=== PATIENT | female | born 1955 | race Caucasian/White ===

== ENCOUNTER → 2017-02-25 | Outpatient (CLI) | payer BC | END | disposition home or self-care (01) | LOC: C.LABSPEC 17:41 | PROVIDERS: ATTEND Physician Assistant | DX: L29.2 Pruritus vulvae (principal) ==

== ENCOUNTER → 2017-08-02 | Outpatient (CLI) | payer BC | END | disposition home or self-care (01) | LOC: C.PAPS 16:21 | PROVIDERS: ATTEND Obstetrics & Gynecology | DX: Z01.419 Encounter for gynecological examination (general) (routine) without abnormal findings (principal) ==

== ENCOUNTER 2022-06-11 01:11 | Observation (INO) ==
[2022-06-11 01:46] LABS: Basophils # (auto) 0.08 K/uL (0-0.2); Eosinophils # (auto) 1.04 K/uL (0-0.50); Eosinophils % (auto) 13.2 %; Hematocrit (blood only) 42.3 % (34.1-44.9); Hemoglobin 13.8 g/dl (12.0-16.0); Immature Granulocytes # (auto) 0.01 K/uL (0.00-0.02); Immature Granulocytes % (auto) 0.1 %; Lymphocytes # (auto) 2.16 K/uL (1.2-3.4); Lymphocytes % (auto) 27.5 %; Mean Corpuscular Hemoglobin 28.6 pg (25.0-34.0); Mean Corpuscular Hgb Conc 32.6 g/dL (32.0-36.0); Mean Corpuscular Volume 87.8 fL (80.0-100.0); Mean Platelet Volume 9.7 fL (9.4-12.3); Monocytes # (auto) 0.85 K/uL (0.24-0.82); Monocytes % (auto) 10.8 %; Neutrophils # (auto) 3.71 K/uL (1.4-6.5); Neutrophils % (auto) 47.4 %; Platelet Count 259 K/uL (130-400); RDW Coefficient of Variation 13.5 % (11.5-14.5); RDW Standard Deviation 43.6 fL (36.4-46.3); Red Blood Count 4.82 M/uL (3.93-5.22); White Blood Count 7.85 K/ul (4.8-10.8)
[2022-06-11 01:57] LABS: D Dimer 530 ug/L FEU (0-500); INR 0.9 (0.9-1.1); Partial Thromboplastin Ratio 0.9; Partial Thromboplastin Time 24.3 Seconds (21.0-31.0); Prothrombin Time 9.8 Seconds (9.0-12.0)
[2022-06-11] MEDS ORDERED: ASPIRIN CHEW 324 MG PO STA (02:08)
--- NOTE | 2022-06-11 02:12 | Emergency Department Note ---
History of Present Illness General Chief complaint: Tachycardia Stated complaint: RAPID HEARTBEAT, ELEVATED BLOOD PRESSURE, SWEATING Time Seen by Provider: 06/11/22 01:38 History of Present Illness 66-year-old female presents emergency department states that at 12:20 AM she was woken from sleep with chest pressure she felt extremely tired she felt that her heart was racing she took her blood pressure was reportedly high and her heart rate was 70 typically her heart rate is in the 50-60 range. Patient denies any shortness of breath denies any pleuritic chest pain. Patient states she felt extremely fatigued and had indigestion. Patient states she is much improved currently patient denies shortness of breath. There are no other mitigating or alleviating factors Home Medications Medication Instructions Recorded Confirmed Type etanercept 25 mg (1 mL) 25 mg subcut .COMPLEX 05/27/19 03/01/21 History subcutaneous powder for solution levothyroxine 50 mcg tablet 50 mcg PO DAILY 05/27/19 03/01/21 History alendronate 70 mg tablet 70 mg PO .weekly 03/01/21 03/01/21 History atorvastatin 10 mg tablet 10 mg PO DAILY 03/01/21 03/01/21 History diltiazem HCl 120 mg 120 mg PO DAILY 03/01/21 03/01/21 History capsule,extended release 24 hr losartan 100 mg tablet 100 mg PO DAILY 03/01/21 03/01/21 History Allergies Allergy/AdvReac Type Severity Reaction Status Date / Time amoxicillin Allergy Verified 03/01/21 10:55 sulfamethoxazole Allergy abdominal Verified 03/01/21 10:55 [From Bactrim] pain, fatigue trimethoprim [From Bactrim] Allergy abdominal Verified 03/01/21 10:55 pain, fatigue Past Med/Surg History Medical History History of anxiety History of arthritis History of cardiac murmur History of hyperlipidemia History of hypertension History of Lyme disease History of migraine History of thyroid disease Rheumatoid arthritis Varicella Surgical History History of cataract surgery S/P dilation and curettage S/P foot surgery hallux valgus (bunion) correction S/P parathyroidectomy aug 2013 Family History Father Myocardial infarction Grandmother (Paternal) Myocardial infarction Osteoporosis Brother Colorectal cancer Daughter Endometriosis Grandfather (Maternal) Heart disease Grandmother (Maternal) Heart disease Mother Hypertension Osteoporosis Stroke Grandfather (Paternal) Kidney disease Other Cardiovascular disorder Social History Smoking Status: Never smoker Hx Alcohol Use: Yes (social) Preferred Language: Yi marital status: Feels Safe at Home: Yes Review of Systems A total of 10 systems reviewed and were otherwise negative Constitutional: no fever Respiratory: no cough Cardiovascular: + chest pain Gastrointestinal: no abdominal pain Physical Exam Vital Signs Vital Signs - 24 hr 06/11/22 01:13 06/11/22 01:12 06/11/22 01:12 Temperature 36.1 C L Temperature Source Temporal Artery Scan Pulse Rate 55 L Pulse Rate [Apical] 50 L Pulse Rate from SpO2 Sensor Respiratory Rate 20 16 Respiratory Effort / Characteristics Non-Labored Spontaneous Non-Labored Spontaneous Respiratory Depth Normal Normal Respiratory Pattern Regular Blood Pressure 172/106 H Blood Pressure [Left Arm] 171/106 H Blood Pressure [Right Arm] 206/97 H Blood Pressure Mean 128 Blood Pressure Mean [Left Arm] 127 Blood Pressure Mean [Right Arm] 133 Blood Pressure Position [Right Arm] Sitting Pulse Oximetry 99 97 96 Oxygen Delivery Method Room Air Room Air Room Air Sepsis New/Unexplained Change in Mental Status N/A Sepsis Action Taken by Nursing No Action Required 06/11/22 01:27 06/11/22 01:30 06/11/22 01:32 Temperature Temperature Source Pulse Rate 50 L 53 L Pulse Rate [Apical] Pulse Rate from SpO2 Sensor Respiratory Rate 16 15 Respiratory Effort / Characteristics Respiratory Depth Respiratory Pattern Blood Pressure 186/92 H 171/106 H Blood Pressure [Left Arm] Blood Pressure [Right Arm] Blood Pressure Mean 123 127 Blood Pressure Mean [Left Arm] Blood Pressure Mean [Right Arm] Blood Pressure Position [Right Arm] Pulse Oximetry 96 99 Oxygen Delivery Method Room Air Sepsis New/Unexplained Change in Mental Status Sepsis Action Taken by Nursing 06/11/22 01:33 06/11/22 01:33 06/11/22 02:00 Temperature Temperature Source Pulse Rate 54 L Pulse Rate [Apical] Pulse Rate from SpO2 Sensor 54 L Respiratory Rate 12 Respiratory Effort / Characteristics Respiratory Depth Respiratory Pattern Blood Pressure 206/97 H 176/96 H Blood Pressure [Left Arm] Blood Pressure [Right Arm] Blood Pressure Mean 133 122 Blood Pressure Mean [Left Arm] Blood Pressure Mean [Right Arm] Blood Pressure Position [Right Arm] Pulse Oximetry 97 Oxygen Delivery Method Sepsis New/Unexplained Change in Mental Status Sepsis Action Taken by Nursing 06/11/22 02:00 06/11/22 02:30 06/11/22 03:00 Temperature Temperature Source Pulse Rate 52 L 52 L 58 L Pulse Rate [Apical] Pulse Rate from SpO2 Sensor Respiratory Rate 12 16 20 Respiratory Effort / Characteristics Respiratory Depth Respiratory Pattern Blood Pressure 177/92 H 175/92 H Blood Pressure [Left Arm] Blood Pressure [Right Arm] Blood Pressure Mean 120 119 Blood Pressure Mean [Left Arm] Blood Pressure Mean [Right Arm] Blood Pressure Position [Right Arm] Pulse Oximetry 94 98 Oxygen Delivery Method Sepsis New/Unexplained Change in Mental Status Sepsis Action Taken by Nursing 06/11/22 03:30 06/11/22 03:30 06/11/22 04:00 Temperature Temperature Source Pulse Rate 54 L 52 L 52 L Pulse Rate [Apical] Pulse Rate from SpO2 Sensor 52 L Respiratory Rate 20 15 16 Respiratory Effort / Characteristics Respiratory Depth Respiratory Pattern Blood Pressure 182/89 H 186/87 H Blood Pressure [Left Arm] Blood Pressure [Right Arm] Blood Pressure Mean 120 120 Blood Pressure Mean [Left Arm] Blood Pressure Mean [Right Arm] Blood Pressure Position [Right Arm] Pulse Oximetry 95 96 96 Oxygen Delivery Method Sepsis New/Unexplained Change in Mental Status Sepsis Action Taken by Nursing 06/11/22 04:30 Temperature Temperature Source Pulse Rate Pulse Rate [Apical] Pulse Rate from SpO2 Sensor 61 Respiratory Rate 20 Respiratory Effort / Characteristics Respiratory Depth Respiratory Pattern Blood Pressure 189/98 H Blood Pressure [Left Arm] Blood Pressure [Right Arm] Blood Pressure Mean 128 Blood Pressure Mean [Left Arm] Blood Pressure Mean [Right Arm] Blood Pressure Position [Right Arm] Pulse Oximetry 96 Oxygen Delivery Method Sepsis New/Unexplained Change in Mental Status Sepsis Action Taken by Nursing VITAL SIGNS - Vital signs and nursing notes were reviewed. GENERAL - no acute distress. Communicates well with provider and answers questions appropriately. SKIN - Without rashes. HEAD - NC/AT. EYES - PERRL with EOMI bilaterally. Sclera anicteric. Palpebral conjunctiva pink and moist with no injection noted. EARS - No deformities of external structures noted on gross examination bilaterally. NOSE - Midline and without cyanosis. No epistaxis or purulent drainage noted. Septum midline without deviation or septal hematoma noted. MOUTH/OROPHARYNX - Without perioral cyanosis. Buccal mucosa pink and moist NECK - Neck with FROM. Supple to palpation. LUNGS - Chest wall symmetric without accessory muscle use, intercostals retractions, or central cyanosis. Normal vesicular breath sounds CTA B/L. No wheezes, rales, or rhonchi appreciated. CARDIAC - RRR with S1/S2. No murmur, rubs, or gallops appreciated. ABDOMEN - Abdominal contour soft without pulsations or visible masses. BS normoactive all four quadrants. No tenderness, palpable masses, hepatosplenomegaly, or ascites noted. EXTREMITIES - No clubbing or peripheral cyanosis. No pretibial edema present. +5/5 strength noted in UE/LE bilaterally. NEUROLOGIC - Cranial nerves II through XII grossly intact. PSYCH - A&Ox3 and cooperates fully with examiner. Pt is very pleasant and interacts well with examiner. Course Reevaluation(s) Reevaluation #1: Patient is taken aspirin prior to arrival. Patient underwent CT scanning. Patient due to risk factors will be admitted to the hospital. The case was discussed with the hospitalist for admission Time: 05:09 Administered Medications Discontinued Medications Aspirin (Aspirin Chew 324 Mg) 324 mg PO NOW STA Stop: 06/11/22 02:09 Last Admin: 06/11/22 02:24 Dose: Not Given Documented By: SHIRLEY Ioversol (Optiray 300 500ml) 125 ml IV ONCE ONE Stop: 06/11/22 02:56 Last Admin: 06/11/22 02:55 Dose: 114 ml Documented By: BETTINA Medical Decision Making Medical Records Attestation: I reviewed the patient's medical records. Home Medications Current Medication List: was personally reviewed by me Laboratory Data Attestation: I reviewed the patient's lab results. Result diagrams: 06/11/22 01:06/11/22: Lab Results 06/11/22 06/11/22 06/11/22 Range/Units 01: 01: 01:29 WBC 7.85 (4.8-10.8) K/ul RBC 4.82 (3.93-5.22) M/uL Hgb 13.8 (12.0-16.0) g/dl Hct 42.3 (34.1-44.9) % MCV 87.8 (80.0-100.0) fL MCH 28.6 (25.0-34.0) pg MCHC 32.6 (32.0-36.0) g/dL RDW Std Deviation 43.6 (36.4-46.3) fL RDW Coeff of [place] 13.5 (11.5-14.5) % Plt Count 259 (130-400) K/uL MPV 9.7 (9.4-12.3) fL Immature Gran % (Auto) 0.1 % Neut % (Auto) 47.4 % Lymph % (Auto) 27.5 % Todd % (Auto) 10.8 % Eos % (Auto) 13.2 % Baso % (Auto) 1.0 % Neut # (Auto) 3.71 (1.4-6.5) K/uL Lymph # (Auto) 2.16 (1.2-3.4) K/uL Todd # (Auto) 0.85 H (0.24-0.82) K/uL Eos # (Auto) 1.04 H (0-0.50) K/uL Baso # (Auto) 0.08 (0-0.2) K/uL Immature Gran # (Auto) 0.01 (0.00-0.02) K/uL PT 9.8 (9.0-12.0) Seconds INR 0.9 (0.9-1.1) APTT 24.3 (21.0-31.0) Seconds PTT Ratio 0.9 D-Dimer 530 H* (0-500) ug/L FEU Sodium 139 (136-145) mmol/L Potassium 3.8 (3.5-5.1) mmol/L Chloride 102 (98-107) mmol/L Carbon Dioxide 29 (21-32) mmol/L Anion Gap 8 (3-11) BUN 27 H (6-23) mg/dl Creatinine 0.83 (0.6-1.2) mg/dl Est Cr Clr Drug Dosing 63.3 ml/min Est GFR ( Amer) 85.8 ml/min Est GFR (Non-Af Amer) 74.0 ml/min BUN/Creatinine Ratio 32.5 H (10-20) Glucose 99 (70-99(Fasting)) mg/dl Calcium 10.1 (8.5-10.1) mg/dl Magnesium 2.1 (1.7-2.4) mg/dl Total Bilirubin 0.4 (0.2-1.0) mg/dl AST 22 (13-39) U/L ALT 21 (7-52) U/L Alkaline Phosphatase 56 (34-104) U/L Troponin I High Sens 6.0 (0-14) pg/ml Total Protein 7.4 (6.0-8.3) gm/dl Albumin 4.2 (3.4-5.0) gm/dl Globulin 3.2 (2.5-4.0) gm/dl Albumin/Globulin Ratio 1.3 (0.9-2) Lipase 63 (11-82) U/L TSH (0.300-4.500) uIu/ml Free T4 (0.61-1.60) ng/dl Urine Color Urine Appearance (Clear) Urine pH (4.5-7.5) Ur Specific [place] (1.000-1.030) Urine Protein (Negative) Urine Glucose (UA) (Negative) Urine Ketones (Negative) Urine Blood (Negative) Urine Nitrite (Negative) Urine Bilirubin (Negative) Urine Urobilinogen (Negative) Ur Leukocyte Esterase (Negative) SARS-CoV-2, RNA, NAAT (NEGATIVE) 06/11/22 06/11/22 06/11/22 Range/Units 01:29 02:56 04:36 WBC (4.8-10.8) K/ul RBC (3.93-5.22) M/uL Hgb (12.0-16.0) g/dl Hct (34.1-44.9) % MCV (80.0-100.0) fL MCH (25.0-34.0) pg MCHC (32.0-36.0) g/dL RDW Std Deviation (36.4-46.3) fL RDW Coeff of [place] (11.5-14.5) % Plt Count (130-400) K/uL MPV (9.4-12.3) fL Immature Gran % (Auto) % Neut % (Auto) % Lymph % (Auto) % Todd % (Auto) % Eos % (Auto) % Baso % (Auto) % Neut # (Auto) (1.4-6.5) K/uL Lymph # (Auto) (1.2-3.4) K/uL Todd # (Auto) (0.24-0.82) K/uL Eos # (Auto) (0-0.50) K/uL Baso # (Auto) (0-0.2) K/uL Immature Gran # (Auto) (0.00-0.02) K/uL PT (9.0-12.0) Seconds INR (0.9-1.1) APTT (21.0-31.0) Seconds PTT Ratio D-Dimer (0-500) ug/L FEU Sodium (136-145) mmol/L Potassium (3.5-5.1) mmol/L Chloride (98-107) mmol/L Carbon Dioxide (21-32) mmol/L Anion Gap (3-11) BUN (6-23) mg/dl Creatinine (0.6-1.2) mg/dl Est Cr Clr Drug Dosing ml/min Est GFR ( Amer) ml/min Est GFR (Non-Af Amer) ml/min BUN/Creatinine Ratio (10-20) Glucose (70-99(Fasting)) mg/dl Calcium (8.5-10.1) mg/dl Magnesium (1.7-2.4) mg/dl Total Bilirubin (0.2-1.0) mg/dl AST (13-39) U/L ALT (7-52) U/L Alkaline Phosphatase (34-104) U/L Troponin I High Sens (0-14) pg/ml Total Protein (6.0-8.3) gm/dl Albumin (3.4-5.0) gm/dl Globulin (2.5-4.0) gm/dl Albumin/Globulin Ratio (0.9-2) Lipase (11-82) U/L TSH 11.895 H (0.300-4.500) uIu/ml Free T4 1.42 (0.61-1.60) ng/dl Urine Color Yellow Urine Appearance Clear (Clear) Urine pH 7.5 (4.5-7.5) Ur Specific [place] 1.015 (1.000-1.030) Urine Protein Negative (Negative) Urine Glucose (UA) Negative (Negative) Urine Ketones Negative (Negative) Urine Blood Negative (Negative) Urine Nitrite Negative (Negative) Urine Bilirubin Negative (Negative) Urine Urobilinogen Negative (Negative) Ur Leukocyte Esterase Negative (Negative) SARS-CoV-2, RNA, NAAT NEGATIVE (NEGATIVE) Imaging Data Attestation: I personally reviewed and interpreted this imaging study as follows: My Impression: Chest x-ray interpreted by me negative for infiltrate normal mediastinum no pneumothorax ECG Data Attestation: I personally reviewed and interpreted this ECG as follows: Additional Comments: EKG interpreted by me sinus bradycardia rate of 53 normal intervals normal axis no obvious ST segment elevation or depression MDM Narrative Medical decision making differential diagnosis includes angina unstable angina acute coronary syndrome acute MS acute pulmonary embolism acute anxiety. Plan is to check labs EKG chest x-ray, CT, give aspirin, observe Impression & Plan Chest pain, Adult hypothyroidism Discharge Plan Visit Data Chief Complaint: Tachycardia Stated Complaint: RAPID HEARTBEAT, ELEVATED BLOOD PRESSURE, SWEATING ED Provider: Kapil William Discharge Problem: Chest pain, Adult hypothyroidism Patient Disposition: Being Evaluated by Hospitalist Forms Stand Alone Forms: [facility] Prescriptions Prescriptions: No Action alendronate 70 mg tablet 70 mg PO .weekly atorvastatin 10 mg tablet 10 mg PO DAILY diltiazem HCl 120 mg capsule,extended release 24hr 120 mg PO DAILY losartan 100 mg tablet 100 mg PO DAILY etanercept 25 mg (1 mL) recon soln 25 mg subcut .COMPLEX Label Comments: 25 mg subcut Twice a week; Rx Instructions: 25 mg subcut Twice a week; levothyroxine 50 mcg tablet 50 mcg PO DAILY Referrals Referrals: Andreina Eason MD [Primary Care Provider] -
[2022-06-11 02:30] LABS: Thyroid Stimulating Hormone 11.895 uIu/ml (0.300-4.500)
[2022-06-11 02:37] LABS: Albumin Globulin Ratio 1.3 (0.9-2); Albumin Level 4.2 gm/dl (3.4-5.0); BUN Creatinine Ratio 32.5 (10-20); Bilirubin,Total 0.4 mg/dl (0.2-1.0); Calcium 10.1 mg/dl (8.5-10.1); Creatinine Clr Calc Pharmacy 63.3 ml/min; Est GFR (African American) 85.8 ml/min; Globulin 3.2 gm/dl (2.5-4.0); Magnesium 2.1 mg/dl (1.7-2.4); Potassium 3.8 mmol/L (3.5-5.1); Total Protein 7.4 gm/dl (6.0-8.3)
[2022-06-11] MEDS ORDERED: OPTIRAY 300 500mL IV ONE (02:55)
[2022-06-11 03:02] LABS: T4 Free Thyroxine 1.42 ng/dl (0.61-1.60)
[2022-06-11 03:51] LABS: Appearance Urine Clear (Clear); Bilirubin Urine Negative (Negative); Blood Urine Negative (Negative); Color Urine Yellow; Glucose Urine UA Negative (Negative); Ketones Urine Negative (Negative); Leukocyte Esterase Urine Negative (Negative); Nitrite Urine Negative (Negative); Protein Urine Negative (Negative); Specific Gravity Urine 1.015 (1.000-1.030); Urobilinogen Urine Negative (Negative); pH Urine 7.5 (4.5-7.5)
--- NOTE | 2022-06-11 05:02 | History & Physical Report ---
Date of Service June 11, 2022 Assessment & Plan (1) Chest pain: Plan: 66yo female with HTN, HLP and RA presenting with substernal chest pressure that woke her from sleep, associated diaphoresis. Presently chest pain free. Initial HS-troponin at appx 1 hr after onset of pain is unremarkable at 6. EKG with no ischemic changes. Patient does endorse some decreased exercise tolerance and MARTINEZ last week which is new to her. -Observation to medical with telemetry -Trend troponin -Check HgbA1C and Lipid panel for risk stratification -Check 2D echo -Consider scheduling outpatient stress testing (2) Hypertension: Plan: Blood pressure mildly elevated -Continue Losartan 100mg po daily (3) Hyperlipidemia: Plan: Chronic. -Continue Atorvastatin 10mg po daily -Check Lipid panel for cardiac risk stratification (4) Adult hypothyroidism: Plan: Chronic. Stable. Elevated TSH with normal T4 -Continue Synthroid 50mcg po daily F/E/N - Heplock. Electrolytes WNL. AHA diet as tolerated Ppx - Lovenox Code - Full Dispo - Observation to medical with telemetry History of Present Illness Chief Complaint: chest pain Primary Care Provider: Andreina Eason MD Alina Lawson is a 66yo female with history of rheumatoid arthritis, HTN, HLP and hypothyroidism presenting with chest pain. Patient was in her usual state of health when she woke this AM around 12:15 with substernal chest discomfort. She felt that there was heaviness and pressure in her chest. She was diaphoretic and clammy and felt very fatigued. Denies nausea, palpitations, dizziness. She reports her blood pressure was elevated as was her heart rate. She took some antacids thinking it was GI, however, got no relief. The discomfort started to improve after 1 hour. Patient presently chest pain free. She has no known history of heart disease or heart failure. She had a stress test many years ago. No stents. She does have a family history of CAD in her mother and father - uncertain age of onset. Patient is active and independent. She walks frequently and does yoga. She typically does not have exertional symptoms with exception of last week when she became exceedingly short of breath, dizzy and fatigued after climbing a flight of stairs. ER: ASA 324 Allergies Allergy/AdvReac Type Severity Reaction Status Date / Time amoxicillin Allergy Verified 03/01/21 10:55 sulfamethoxazole Allergy abdominal Verified 03/01/21 10:55 [From Bactrim] pain, fatigue trimethoprim [From Bactrim] Allergy abdominal Verified 03/01/21 10:55 pain, fatigue Home Medications Medication Instructions Recorded Confirmed Type etanercept 25 mg (1 mL) 25 mg subcut .COMPLEX 05/27/19 03/01/21 History subcutaneous powder for solution levothyroxine 50 mcg tablet 50 mcg PO DAILY 05/27/19 03/01/21 History alendronate 70 mg tablet 70 mg PO .weekly 03/01/21 03/01/21 History atorvastatin 10 mg tablet 10 mg PO DAILY 03/01/21 03/01/21 History diltiazem HCl 120 mg 120 mg PO DAILY 03/01/21 03/01/21 History capsule,extended release 24 hr losartan 100 mg tablet 100 mg PO DAILY 03/01/21 03/01/21 History Past Med/Surg History Medical History (Updated 06/11/22 @ 05:11 by Jojo Herbert DO) History of anxiety History of arthritis History of cardiac murmur History of hyperlipidemia History of hypertension History of Lyme disease History of migraine History of thyroid disease Hyperlipidemia Hypertension Rheumatoid arthritis Varicella Surgical History History of cataract surgery S/P dilation and curettage S/P foot surgery hallux valgus (bunion) correction S/P parathyroidectomy aug 2013 Family History Father Myocardial infarction Grandmother (Paternal) Myocardial infarction Osteoporosis Brother Colorectal cancer Daughter Endometriosis Grandfather (Maternal) Heart disease Grandmother (Maternal) Heart disease Mother Hypertension Osteoporosis Stroke Grandfather (Paternal) Kidney disease Other Cardiovascular disorder Social History Smoking Status: Never smoker Hx Alcohol Use: Yes (social) Preferred Language: Kazakh marital status: Feels Safe at Home: Yes Review of Systems Review of Systems: All systems reviewed & are unremarkable except as noted in HPI & below Physical Exam Physical Exam: General: patient resting comfortably, NAD, non-toxic in appea ramon, AA&O x 4 Skin: warm, dry, intact, no rashes or lesions HEENT: NC/AT, PERRL, EOMI, anicteric sclera, conjunctiva without injection, external ear normal to inspection and nontender, nares patent, moist mucus membranes, dentition intact, no oropharyngeal lesions, neck supple, trachea midline, no LAD, no thyromegaly, no JVD Heart: +S1/S2, regular, no m/r/g Lungs: equal air entry bilaterally, no rales/rhonchi/wheezes Abd: +BS, soft, NT/ND, no masses/organomegaly/ascites Ext: warm, 2+ pulses in UE/LE bilaterally, no clubbing/cyanosis or edema, changes consistent with RA present on hands and feet bilaterally - ulnar deviation, MCP hypertrophy Neuro: nonfocal, patient AA&O x 4, speech intact, no facial droop, moving all extremities on command with equal strength 5/5 Results & Data Results & Data ([facility]) Vital Signs (Past 12 Hours) Vital Signs Temp Pulse Pulse Resp BP BP BP 06/11/22 04:30 20 189/98 H 06/11/22 04:00 52 L 16 186/87 H 06/11/22 03:30 52 L 15 06/11/22 03:30 54 L 20 182/89 H 06/11/22 03:00 58 L 20 175/92 H 06/11/22 02:30 52 L 16 177/92 H 06/11/22 02:00 52 L 12 06/11/22 02:00 176/96 H 06/11/22 01:33 54 L 12 06/11/22 01:33 206/97 H 06/11/22 01:32 171/106 H 06/11/22 01:30 53 L 15 186/92 H 06/11/22 01:27 50 L 16 06/11/22 01:12 06/11/22 01:12 50 L 16 171/106 H 206/97 H 06/11/22 01:13 36.1 C L 55 L 20 172/106 H Pulse Ox O2 Del Method 06/11/22 04:30 96 06/11/22 04:00 96 06/11/22 03:30 96 06/11/22 03:30 95 06/11/22 03:00 98 06/11/22 02:30 94 06/11/22 02:00 06/11/22 02:00 06/11/22 01:33 97 06/11/22 01:33 06/11/22 01:32 06/11/22 01:30 99 06/11/22 01:27 96 Room Air 06/11/22 01:12 96 Room Air 06/11/22 01:12 97 Room Air 06/11/22 01:13 99 Room Air Laboratory Results Laboratory Results WBC 7.85 K/ul (4.8-10.8) 06/11/22 01: RBC 4.82 M/uL (3.93-5.22) 06/11/22 01: Hgb 13.8 g/dl (12.0-16.0) 06/11/22: Hct 42.3 % (34.1-44.9) 06/11/22: MCV 87.8 fL (80.0-100.0) 06/11/22: MCH 28.6 pg (25.0-34.0) 06/11/22: MCHC 32.6 g/dL (32.0-36.0) 06/11/22: RDW Std Deviation 43.6 fL (36.4-46.3) 06/11/22: RDW Coeff of [place] 13.5 % (11.5-14.5) 06/11/22: Plt Count 259 K/uL (130-400) 06/11/22 01: MPV 9.7 fL (9.4-12.3) 06/11/22: Immature Gran % (Auto) 0.1 % 06/11/22: Neut % (Auto) 47.4 % 06/11/22 01: Lymph % (Auto) 27.5 % 06/11/22: [place] % (Auto) 10.8 % 06/11/22: Eos % (Auto) 13.2 % 06/11/22: Baso % (Auto) 1.0 % 06/11/22: Neut # (Auto) 3.71 K/uL (1.4-6.5) 06/11/22: Lymph # (Auto) 2.16 K/uL (1.2-3.4) 06/11/22: [place] # (Auto) 0.85 K/uL (0.24-0.82) H 06/11/22 01: Eos # (Auto) 1.04 K/uL (0-0.50) H 06/11/22 01: Baso # (Auto) 0.08 K/uL (0-0.2) 06/11/22 01: Immature Gran # (Auto) 0.01 K/uL (0.00-0.02) 06/11/22 01: PT 9.8 Seconds (9.0-12.0) 06/11/22 01: INR 0.9 (0.9-1.1) 06/11/22: APTT 24.3 Seconds (21.0-31.0) 06/11/22: PTT Ratio 0.9 06/11/22 01: D-Dimer 530 ug/L FEU (0-500) H* 06/11/22 01: Sodium 139 mmol/L (136-145) 06/11/22 01: Potassium 3.8 mmol/L (3.5-5.1) 06/11/22 01: Chloride 102 mmol/L (98-107) 06/11/22 01: Carbon Dioxide 29 mmol/L (21-32) 06/11/22: Anion Gap 8 (3-11) 06/11/22 01: BUN 27 mg/dl (6-23) H 06/11/22 01: Creatinine 0.83 mg/dl (0.6-1.2) 06/11/22 01: Est Cr Clr Drug Dosing 63.3 ml/min 06/11/22 01:29 Est GFR ( Amer) 85.8 ml/min 06/11/22 01: Est GFR (Non-Af Amer) 74.0 ml/min 06/11/22 01: BUN/Creatinine Ratio 32.5 (10-20) H 06/11/22 01: Glucose 99 mg/dl (70-99(Fasting)) 06/11/22 01: Calcium 10.1 mg/dl (8.5-10.1) 06/11/22: Magnesium 2.1 mg/dl (1.7-2.4) 06/11/22 01:29 Total Bilirubin 0.4 mg/dl (0.2-1.0) 06/11/22 01: AST 22 U/L (13-39) 06/11/22 01: ALT 21 U/L (7-52) 06/11/22 01: Alkaline Phosphatase 56 U/L (34-104) 06/11/22 01: Troponin I High Sens 6.0 pg/ml (0-14) 06/11/22 01: Total Protein 7.4 gm/dl (6.0-8.3) 06/11/22 01: Albumin 4.2 gm/dl (3.4-5.0) 06/11/22 01: Globulin 3.2 gm/dl (2.5-4.0) 06/11/22: Albumin/Globulin Ratio 1.3 (0.9-2) 06/11/22 01: Lipase 63 U/L (11-82) 06/11/22 01: TSH 11.895 uIu/ml (0.300-4.500) H 06/11/22 01:29 Free T4 1.42 ng/dl (0.61-1.60) 06/11/22 01:29 Urine Color Yellow 06/11/22 02:56 Urine Appearance Clear (Clear) 06/11/22 02:56 Urine pH 7.5 (4.5-7.5) 06/11/22 02:56 Ur Specific [place] 1.015 (1.000-1.030) 06/11/22 02:56 Urine Protein Negative (Negative) 06/11/22 02:56 Urine Glucose (UA) Negative (Negative) 06/11/22 02:56 Urine Ketones Negative (Negative) 06/11/22 02:56 Urine Blood Negative (Negative) 06/11/22 02:56 Urine Nitrite Negative (Negative) 06/11/22 02:56 Urine Bilirubin Negative (Negative) 06/11/22 02:56 Urine Urobilinogen Negative (Negative) 06/11/22 02:56 Ur Leukocyte Esterase Negative (Negative) 06/11/22 02:56 SARS-CoV-2, RNA, NAAT NEGATIVE (NEGATIVE) 06/11/22 04:36 Diagnostic Findings Laboratory Results WBC 7.85 K/ul (4.8-10.8) 06/11/22: RBC 4.82 M/uL (3.93-5.22) 06/11/22: Hgb 13.8 g/dl (12.0-16.0) 06/11/22: Hct 42.3 % (34.1-44.9) 06/11/22: MCV 87.8 fL (80.0-100.0) 06/11/22 01: MCH 28.6 pg (25.0-34.0) 06/11/22 01: MCHC 32.6 g/dL (32.0-36.0) 06/11/22: RDW Std Deviation 43.6 fL (36.4-46.3) 06/11/22: RDW Coeff of [place] 13.5 % (11.5-14.5) 06/11/22: Plt Count 259 K/uL (130-400) 06/11/22: MPV 9.7 fL (9.4-12.3) 06/11/22: Immature Gran % (Auto) 0.1 % 06/11/22: Neut % (Auto) 47.4 % 06/11/22 01: Lymph % (Auto) 27.5 % 06/11/22: [place] % (Auto) 10.8 % 06/11/22 01: Eos % (Auto) 13.2 % 06/11/22: Baso % (Auto) 1.0 % 06/11/22: Neut # (Auto) 3.71 K/uL (1.4-6.5) 06/11/22 01: Lymph # (Auto) 2.16 K/uL (1.2-3.4) 06/11/22: [place] # (Auto) 0.85 K/uL (0.24-0.82) H 06/11/22: Eos # (Auto) 1.04 K/uL (0-0.50) H 06/11/22 01: Baso # (Auto) 0.08 K/uL (0-0.2) 06/11/22: Immature Gran # (Auto) 0.01 K/uL (0.00-0.02) 06/11/22 01: PT 9.8 Seconds (9.0-12.0) 06/11/22 01: INR 0.9 (0.9-1.1) 06/11/22 01: APTT 24.3 Seconds (21.0-31.0) 06/11/22 01: PTT Ratio 0.9 06/11/22 01:29 D-Dimer 530 ug/L FEU (0-500) H* 06/11/22 01: Sodium 139 mmol/L (136-145) 06/11/22 01: Potassium 3.8 mmol/L (3.5-5.1) 06/11/22: Chloride 102 mmol/L (98-107) 06/11/22: Carbon Dioxide 29 mmol/L (21-32) 06/11/22 01: Anion Gap 8 (3-11) 06/11/22 01: BUN 27 mg/dl (6-23) H 06/11/22 01: Creatinine 0.83 mg/dl (0.6-1.2) 06/11/22 01: Est Cr Clr Drug Dosing 63.3 ml/min 06/11/22 01:29 Est GFR ( Amer) 85.8 ml/min 06/11/22 01: Est GFR (Non-Af Amer) 74.0 ml/min 06/11/22 01: BUN/Creatinine Ratio 32.5 (10-20) H 06/11/22 01: Glucose 99 mg/dl (70-99(Fasting)) 06/11/22 01: Calcium 10.1 mg/dl (8.5-10.1) 06/11/22 01: Magnesium 2.1 mg/dl (1.7-2.4) 06/11/22 01: Total Bilirubin 0.4 mg/dl (0.2-1.0) 06/11/22 01: AST 22 U/L (13-39) 06/11/22 01: ALT 21 U/L (7-52) 06/11/22 01:29 Alkaline Phosphatase 56 U/L (34-104) 06/11/22 01:29 Troponin I High Sens 6.0 pg/ml (0-14) 06/11/22 01: Total Protein 7.4 gm/dl (6.0-8.3) 06/11/22 01: Albumin 4.2 gm/dl (3.4-5.0) 06/11/22 01: Globulin 3.2 gm/dl (2.5-4.0) 06/11/22 01: Albumin/Globulin Ratio 1.3 (0.9-2) 06/11/22 01: Lipase 63 U/L (11-82) 06/11/22 01: TSH 11.895 uIu/ml (0.300-4.500) H 06/11/22 01: Free T4 1.42 ng/dl (0.61-1.60) 06/11/22 01:29 Urine Color Yellow 06/11/22 02:56 Urine Appearance Clear (Clear) 06/11/22 02:56 Urine pH 7.5 (4.5-7.5) 06/11/22 02:56 Ur Specific [place] 1.015 (1.000-1.030) 06/11/22 02:56 Urine Protein Negative (Negative) 06/11/22 02:56 Urine Glucose (UA) Negative (Negative) 06/11/22 02:56 Urine Ketones Negative (Negative) 06/11/22 02:56 Urine Blood Negative (Negative) 06/11/22 02:56 Urine Nitrite Negative (Negative) 06/11/22 02:56 Urine Bilirubin Negative (Negative) 06/11/22 02:56 Urine Urobilinogen Negative (Negative) 06/11/22 02:56 Ur Leukocyte Esterase Negative (Negative) 06/11/22 02:56 SARS-CoV-2, RNA, NAAT NEGATIVE (NEGATIVE) 06/11/22 04:36 Code Status & VTE Plan VTE Prophylaxis Plan VTE Prophylaxis will be ordered: Yes PG Care Time/CCT Total # of Minutes Spent Total Time Spent with Patient: Total time spent is greater than 50% in coordination of care (as documented) at patient's floor/unit and/or counseling patient: Coding Level of Care Code INT OBSERVATION CARE 50M LVL 2 Diagnoses Chest pain R07.9 Hypertension I10 Hyperlipidemia E78.5 Adult hypothyroidism E03.9
[2022-06-11] MEDS ORDERED: ACETAMINOPHEN 325 MG TAB PO PRN (06:02)
[2022-06-11] MEDS ORDERED: ONDANSETRON INJ 2 MG/ML 2 ML VIAL IV PRN (06:02)
[2022-06-11] MEDS ORDERED: LEVOTHYROXINE SODIUM 50 MCG TABLET PO SCH (06:30)
[2022-06-11] MEDS ORDERED: ENOXAPARIN INJ 40 MG/0.4 ML SYR SQ SCH (07:00)
[2022-06-11 07:51] LABS: Chol HDL Ratio 3.9 (0-5)
[2022-06-11 08:07] LABS: Estimated Average Glucose 126 mg/dl
--- NOTE | 2022-06-11 08:52 | XRay Report ---
XR chest 1V portable HISTORY: Shortness of breath. Palpitations. COMPARISON: None. FINDINGS: The lungs are clear. Cardiac silhouette is normal in size. No pleural effusions. No pneumot horax. IMPRESSION: No acute process. ACT 112: Negative or not required by law. Electronically signed by: Madhu Guerrero M.D. 06/11/2022 8:50 AM
[2022-06-11] MEDS ORDERED: LOSARTAN POTASSIUM 50 MG TAB PO SCH (09:00)
[2022-06-11] MEDS ORDERED: ATORVASTATIN 10 MG TAB PO SCH (09:00)
--- NOTE | 2022-06-11 09:15 | CT Scan Report ---
CT ANGIOGRAM OF THE CHEST CLINICAL HISTORY: Dyspnea. Atypical chest pain. COMPARISON STUDY: Chest x-ray dated 06/11/2022. TECHNIQUE: Following the IV administration of 114 cc of Optiray 300 , CT angiogram of the chest was p erformed from the upper abdomen to the thoracic inlet utilizing the pulmonary embolus protocol. Image s are reviewed in the axial, sagittal, and coronal planes. 3-D MIPS images are created and assessed. IV contrast was administered without complication. A dose lowering technique was utilized adhering t o the principles of ALARA. CT DOSE: 225.70 mGy.cm FINDINGS: Thyroid: Mildly atrophic. Surgical clips are noted in the right lower neck adjacent to the right lobe . Thoracic aorta: The thoracic aorta is normal in caliber and demonstrates standard 3-vessel arch anato my. No dissection is seen. Pulmonary vasculature: The pulmonary trunk is normal in caliber. There are no filling defects identif ied in main, lobar, or segmental pulmonary branches to suggest pulmonary embolus. Heart: The heart is normal in size and without pericardial effusion. Lungs and pleural spaces: The lungs and pleural spaces are clear noting dependent atelectasis. The tr achea and central airways are patent. Mediastinum: There is no mediastinal lymphadenopathy. Kimberly: Clear. Axillae: There is no axillary lymphadenopathy. Upper abdomen: There is a small hiatal hernia. A 1.7 cm cyst arises from the upper pole of the right kidney. Partially visualized upper abdominal viscera is otherwise within normal limits. Skeletal structures: No lytic or blastic bony lesions are seen. IMPRESSION: 1. There is no evidence of pulmonary embolus in the main, lobar, or segmental pulmonary arteries. 2. The lungs are clear. ACT 112: Negative or not required by law. Electronically signed by: Jordan Hughes M.D. 06/11/2022 9:13 AM
--- NOTE | 2022-06-11 10:09 | XCELERA ---
[id number]
--- NOTE | 2022-06-11 11:55 | Discharge Summary ---
Date of Service June 11, 2022 Admission HPI Per Admitting Provider Alina Lawson is a 66yo female with history of rheumatoid arthritis, HTN, HLP and hypothyroidism presenting with chest pain. Patient was in her usual state of health when she woke this AM around 12:15 with substernal chest discomfort. She felt that there was heaviness and pressure in her chest. She was diaphoretic and clammy and felt very fatigued. Denies nausea, palpitations, dizziness. She reports her blood pressure was elevated as was her heart rate. She took some antacids thinking it was GI, however, got no relief. The discomfort started to improve after 1 hour. Patient presently chest pain free. She has no known history of heart disease or heart failure. She had a stress test many years ago. No stents. She does have a family history of CAD in her mother and father - uncertain age of onset. Patient is active and independent. She walks frequently and does yoga. She typically does not have exertional symptoms with exception of last week when she became exceedingly short of breath, dizzy and fatigued after climbing a flight of stairs. ER: ASA 324 Principal Diagnosis Not feeling well, ruled out for ACS Discharge Exam GEN: 66 yo wd/wn middle aged WF. Pleasant, cooperative, NAD. LUNGS: Clear to auscultation bilaterally. No accessory muscle use. No W/R/R. CARDIOVASCULAR: Regular rate and rhythm. No M/G/R. No JVD. ABDOMEN: Soft, non-tender and non-distended. BS normoactive x 4 quad. EXTREMITIES: No edema. Non-tender. Peripheral pulses +2/4. NEUROLOGIC: A&O x3. Nonfocal PSYCHIATRIC: Cooperative. Appropriate mood and affect. SKIN: Warm, dry, intact. No rashes or lesions. Discharge Data Allergies Allergy/AdvReac Type Severity Reaction Status Date / Time amoxicillin Allergy Verified 03/01/21 10:55 sulfamethoxazole Allergy abdominal Verified 03/01/21 10:55 [From Bactrim] pain, fatigue trimethoprim [From Bactrim] Allergy abdominal Verified 03/01/21 10:55 pain, fatigue Consultations 06/11/22 04:36 ED Decision to Admit Stat Ordered Studies Chest X-Ray 06/11/22 01:27 XR chest 1V portable HISTORY: Shortness of breath. Palpitations. COMPARISON: None. FINDINGS: The lungs are clear. Cardiac silhouette is normal in size. No pleural effusions. No pneumothorax. IMPRESSION: No acute process. ACT 112: Negative or not required by law. Electronically signed by: Madhu Guerrero M.D. 06/11/2022 8:50 AM Chest CTA 06/11/22 02:08 CT ANGIOGRAM OF THE CHEST CLINICAL HISTORY: Dyspnea. Atypical chest pain. COMPARISON STUDY: Chest x-ray dated 06/11/2022. TECHNIQUE: Following the IV administration of 114 cc of Optiray 300 , CT angiogram of the chest was performed from the upper abdomen to the thoracic inlet utilizing the pulmonary embolus protocol. Images are reviewed in the axial, sagittal, and coronal planes. 3-D MIPS images are created and assessed. IV contrast was administered without complication. A dose lowering technique was utilized adhering to the principles of ALARA. CT DOSE: 225.70 mGy.cm FINDINGS: Thyroid: Mildly atrophic. Surgical clips are noted in the right lower neck adjacent to the right lobe. Thoracic aorta: The thoracic aorta is normal in caliber and demonstrates standard 3-vessel arch anatomy. No dissection is seen. Pulmonary vasculature: The pulmonary trunk is normal in caliber. There are no filling defects identified in main, lobar, or segmental pulmonary branches to suggest pulmonary embolus. Heart: The heart is normal in size and without pericardial effusion. Lungs and pleural spaces: The lungs and pleural spaces are clear noting dependent atelectasis. The trachea and central airways are patent. Mediastinum: There is no mediastinal lymphadenopathy. Kimberly: Clear. Axillae: There is no axillary lymphadenopathy. Upper abdomen: There is a small hiatal hernia. A 1.7 cm cyst arises from the upper pole of the right kidney. Partially visualized upper abdominal viscera is otherwise within normal limits. Skeletal structures: No lytic or blastic bony lesions are seen. IMPRESSION: 1. There is no evidence of pulmonary embolus in the main, lobar, or segmental pulmonary arteries. 2. The lungs are clear. ACT 112: Negative or not required by law. Electronically signed by: Jordan Hughes M.D. 06/11/2022 9:13 AM Echocardiogram: 06/11/22 1. Normal left ventricular size and systolic function. EF 65-70%. No regional wall motion abnormalities. No left ventricular hypertrophy 2. No significant valvular abnormalities. 3. Normal estimated right ventricular systolic pressure; RVSP 23 mmHg. 4. No prior study for comparison Hospital Course (1) Chest pain: 66yo female with HTN, HLP and RA presenting with substernal chest pressure that woke her from sleep, associated diaphoresis. Presently chest pain free. Initial HS-troponin at appx 1 hr after onset of pain is unremarkable at 6. EKG with no ischemic changes. Patient does endorse some decreased exercise tolerance and MARTINEZ last week which is new to her. -Observation to medical with telemetry -HS trop negative x 2, EKG sinus arnaldo w/o acute st-t wave changes -Check HgbA1C and Lipid panel for risk stratification -Echo ordered, as above, no acute abnormal findings -Would f/u with pcp, pt not without any cp prior to admission and has had no reported issues with exercise intolerance -Advise f/u with pcp to discuss if worthwhile to do a stress test -Recent COVID-19 on , ?long-haul covid (2) Hypertension: Blood pressure mildly elevated -Continue Losartan 100mg po daily (3) Hyperlipidemia: Chronic. -Continue Atorvastatin 10mg po daily -Lipid panel this morning is controlled-would continue current dose of Atorvastatin as prescribed (4) Adult hypothyroidism: Chronic. Stable. Elevated TSH with normal T4 -Continue Synthroid 50mcg po daily Plan Patient is medically and hemodynamically stable for discharge home. Advised f/u with pcp within 1 week-will defer discussion regarding arranging for a stress test to PCP. Continue all current medications w/o change. Plan has been d/w Dr. Estes who is in agreement with aforementioned. Total Time Total Time Spent Total Time Spent (In Minutes): >30 minutes Discharge Plan Discharge Items Patient Disposition: Home - Self-Care Reason For Visit: CHEST PAIN Discharge Diagnosis: Unspecified symptoms/chest discomfort Activity: Resume your previous activity Non-emergency contact: Primary Care Provider Call non-emergency contact if: you have any medication questions and your symptoms worsen Follow-up/Referrals: Andreina Eason MD [Primary Care Provider] - Diet: Regular Addtl Attending Provider Instructions: You were hospitalized due to vague symptoms that were concerning for heart being the cause. Fortunately, your work up found that your heart markers are normal and your ultrasound of your heart (called an echocardiogram) was normal. There is no heart valve abnormalities and your heart is squeezing well. You also had a CT scan of your chest to make sure that you did not have a blood clot in your lungs. This scan was also negative. It is recommended that you follow up with your family doctor within 1 week of discharge. If you have any questions following your discharge, you may call the nonemergency number listed on your discharge paperwork. In the event of a medical emergency, call 911. Pending Studies at Discharge: No Stand-Alone Forms: My [facility], Smoking Cessation Medications and DC Order Prescriptions: Continued alendronate 70 mg tablet 70 mg PO .weekly atorvastatin 10 mg tablet 10 mg PO DAILY diltiazem HCl 120 mg capsule,extended release 24hr 120 mg PO DAILY losartan 100 mg tablet 100 mg PO DAILY etanercept 25 mg (1 mL) recon soln 25 mg subcut .COMPLEX Label Comments: 25 mg subcut Twice a week; Rx Instructions: 25 mg subcut Twice a week; levothyroxine 50 mcg tablet 50 mcg PO DAILY Discharge Orders: Discharge Order (Routine); Ordered 06/11/22 Ordered By: Sparkle Malik Admission Data Admit Date/Time: 06/11/22 04:57 Attending Provider: Hoang Estes Admit Provider: Jojo Herbert Primary Care Provider: Andreina Eason Other Providers: Jojo Herbert Coding Level of Care Code None Diagnoses Chest pain R07.9 Hypertension I10 Hyperlipidemia E78.5 Adult hypothyroidism E03.9
--- NOTE | 2022-06-11 15:56 | Electrocardiogram Report ---
Test Reason : Blood Pressure : / mmHG Vent. Rate : 053 BPM Atrial Rate : 053 BPM P-R Int : 152 ms QRS Dur : 066 ms QT Int : 434 ms P-R-T Axes : 049 014 057 degrees QTc Int : 407 ms Sinus bradycardia Otherwise normal ECG No previous ECGs available Confirmed by Julio C New ([id number]) on 06/11/2022 3:56:16 PM Referred By: REFERRED SELF Confirmed By:Julio C New
== END 2022-06-11 12:36 | disposition home or self-care (01) | DRG 313 ==
LOC: ED 01:11 → SUATTDRO 04:57 → 2S 04:57 → INTOOBSV 04:57 → 2S 05:39
DX: Z86.16 Personal history of COVID-19; R00.0 Tachycardia, unspecified; E03.9 Hypothyroidism, unspecified; E78.5 Hyperlipidemia, unspecified; I10 Essential (primary) hypertension; Z88.1 Allergy status to other antibiotic agents; Z79.899 Other long term (current) drug therapy; Z82.49 Family history of ischemic heart disease and other diseases of the circulatory system; Z79.890 Hormone replacement therapy; R07.89 Other chest pain